=== PATIENT | female | born 1970 | race Caucasian/White ===

== ENCOUNTER 2020-01-14 23:24 | Emergency (ER) | payer BC ==
[2020-01-14 23:46] LABS: ABSOLUTE BASOPHILS # (AUTO) 0.1 10^3/uL (0.0-0.2); ABSOLUTE EOSINOPHILS # (AUTO) 0.1 10^3/uL (0.0-0.6); ABSOLUTE LYMPHOCYTES (AUTO) 0.9 10^3/uL (0.5-4.7); ABSOLUTE MONOCYTES (AUTO) 0.7 10^3/uL (0.1-1.4); ABSOLUTE NEUT (AUTO) 7.5 10^3/uL (1.7-8.2); BASOPHILS % (AUTO) 0.8 % (0-2); EOSINOPHILS % (AUTO) 1.5 % (0-6); HEMATOCRIT 31.8 % (36.0-47.0); HEMOGLOBIN 11.2 g/dL (12.0-15.5); LYMPHOCYTES % (AUTO) 9.9 % (13-45); MEAN CORPUSCULAR HEMOGLOBIN 29.1 pg (27.0-33.4); MEAN CORPUSCULAR HGB CONC 35.2 g/dL (32.0-36.0); MEAN CORPUSCULAR VOLUME 83 fl (80-97); MONOCYTES % (AUTO) 7.2 % (3-13); PLATELET COUNT 259 10^3/uL (150-450); RED BLOOD COUNT 3.84 10^6/uL (3.72-5.28); RED CELL DISTRIBUTION WIDTH 15.8 % (11.5-14.0); SEGMENTED NEUTROPHILS % (AUTO) 80.6 % (42-78); TOTAL CELLS COUNTED % (AUTO) 100 %; WHITE BLOOD COUNT 9.4 10^3/uL (4.0-10.5)
[2020-01-15 00:06] LABS: ALBUMIN 4.4 g/dL (3.5-5.0); ALKALINE PHOSPHATASE 94 U/L (38-126); ANION GAP 8 (5-19); ASPARTATE AMINO TRANSFERASE 30 U/L (14-36); BILIRUBIN,TOTAL 0.4 mg/dL (0.2-1.3); BLOOD UREA NITROGEN 11 mg/dL (7-20); CALCIUM 9.8 mg/dL (8.4-10.2); CARBON DIOXIDE 26 mmol/L (22-30); CHLORIDE 103 mmol/L (98-107); GLUCOSE 133 mg/dL (75-110); POTASSIUM 3.9 mmol/L (3.6-5.0); TOTAL PROTEIN 7.2 g/dL (6.3-8.2)
[2020-01-15] MEDS ORDERED: HYDROMORPHONE HCL INJ/PF 2 MG/ML AMPULE IV ONE (00:13)
[2020-01-15] MEDS ORDERED: ONDANSETRON HCL INJ/PF 4 MG/2 ML SDV IV ONE (00:14)
--- NOTE | 2020-01-15 00:22 | ER Document Report ---
ED General - Related Data Home Medications: Omeprazole, metoprolol <RINA URIBE - Last Filed: 01/15/20 03:40> <DALE BARCLAY IV - Last Filed: 01/15/20 04:22> - General Chief Complaint: Abdominal Pain Stated Complaint: ABDOMINAL PAIN Time Seen by Provider: 01/15/20 00:09 - HPI Notes: Patient is a 49-year-old female who presents to the emergency department for evaluation after abdominal pain. It was sudden onset this evening while she was driving, at approximately 1930. She points to her left lower quadrant, but states the pain is everywhere. It is sharp and stabbing. She is rolling around in the bed screaming, it is difficult to obtain history. She states she was eating some Serbian fries when the pain started. She states she had a normal bowel movement this morning, small bowel movement at 2130. She has had some significant nausea but no emesis. She is still urinating. She states she had pain similar in the past when she had a perforated gastric ulcer. She states now she is getting leg cramps that have started since coming back in the room. (RINA URIBE) - Related Data Allergies/Adverse Reactions: soy Allergy (Verified 01/14/20 23:45) Past Medical History - General Information source: Patient - Social History Smoking Status: Never Smoker Family History: Reviewed & Not Pertinent - Past Medical History Cardiac Medical History: Reports: Hx Hypertension GI Medical History: Reports: Hx Gastritis, Hx Gastroesophageal Reflux Disease, Hx Ulcer - Perforated, Other - Intussusception Past Surgical History: Reports: Hx Bowel Surgery, Hx Cholecystectomy, Hx Gastric Bypass Surgery, Hx Hysterectomy <RINA URIBE - Last Filed: 01/15/20 03:40> Review of Systems - Review of Systems Gastrointestinal: See HPI Musculoskeletal: See HPI -: Yes All other systems reviewed and negative <RINA URIBE - Last Filed: 01/15/20 03:40> Physical Exam <RINA URIBE - Last Filed: 01/15/20 03:40> - Vital signs Vitals: Pulse Ox 100 01/14/20 23:26 - Notes Notes: This is a 49-year-old female who appears her stated age, in a moderate amount of distress. She is screaming, rolling around on the bed, getting up off of the bed and pacing around in the room. Vital signs reviewed, please refer to chart. Head is normocephalic, atraumatic. Pupils equal round, reactive to light. Neck is supple without meningismus. Heart is regular rate and rhythm. Lungs are clear to auscultation bilaterally. Abdomen is diffusely tender with voluntary guarding throughout, normoactive bowel sounds noted. Extremities without cyanosis, clubbing. Posterior calves are nontender. Peripheral pulses are equal. Skin is warm and dry. Patient is awake, alert, neurological exam is nonfocal. (RINA URIBE) Course - Laboratory Result Diagrams: 01/14/20 23:34 01/14/20 23:34 <RINA URIBE - Last Filed: 01/15/20 03:40> - Laboratory Result Diagrams: 01/14/20 23:34 01/14/20 23:34 - Consults Dr. Ron Marcial, Bariatric surgeon, [facility] Time consulted: 03:45 - Dr. Marcial accepted pt for transfer to his facility <DALE BARCLAY IV - Last Filed: 01/15/20 04:22> - Re-evaluation Re-evalutation: 01/15/20 00:22 Patient presents to the emergency department for evaluation. She is very dramatically rolling around on the bed, screaming out in pain. It is difficult to get a good exam or obtain a good history at this time. I did order Dilaudid and Zofran. She received fentanyl, Phenergan, Benadryl in route. There is a wide differential of this patient's pain etiology at this time. I did order CT of the abdomen pelvis with IV contrast for further evaluation. We will continue to monitor. 01/15/20 02:13 Awaiting official read from radiology, but there is clearly some sort of obstruction on initial evaluation of the CT scan. Patient is feeling significantly improved after the Dilaudid and Zofran. Given her multiple abdominal surgeries, including gastric bypass, this does at a level of complication to the patient's care. She has been cared for by Katelynn Walls at [facility] in [place] in the past, would prefer care by Dr. Walls as possible. She is currently stable, awaiting radiology input. 01/15/20 03:40 I was able to contact [facility], but was waiting for some time for call back. I then spoke with [facility] in [place]. I spoke with Dr. Marcial, on-call physician for the gastric bypass team. He happily accepted the patient in transfer. I am awaiting her rapid COVID test. Patient is placed on IV fluids. PRN pain and nausea medications ordered. She is stable. We will transfer her to [place] for further care. (RINA URIBE) - Vital Signs Vital signs: Temp Pulse Resp BP Pulse Ox 98.4 F 18 144/91 H 95 01/15/20 03:05 01/14/20 23:41 01/15/20 03:01 01/15/20 03:02 - Laboratory Laboratory results interpreted by vt: 01/14/20 01/14/20 01/15/20 23:34 23:34 02:10 Hgb 11.2 L Hct 31.8 L RDW 15.8 H Lymph % (Auto) 9.9 L Seg Neutrophils % 80.6 H Glucose 133 H Lipase 367.4 H Urine Ketones 20 H - Consults Dr. Ron Marcial, Bariatric surgeon, [facility] Reason for consultation: 01/15/20 04:21 sbo, h/o gastric bypass (DALE BARCLAY IV) Discharge - Discharge Admitting Provider: Dr. Marcial <RINA URIBE - Last Filed: 01/15/20 03:40> <DALE BARCLAY IV - Last Filed: 01/15/20 04:22> - Discharge Clinical Impression: Small bowel obstruction Condition: Stable Disposition: OTHER
--- NOTE | 2020-01-15 02:08 | RADIOLOGY REPORT (SQ) ---
CLINICAL INDICATION: abdominal pain, h/o perforation. . TECHNIQUE: Noncontrast spiral axial CT imaging was obtained of the abdomen and pelvis with multiplanar reconstructions. This exam was performed according to our departmental dose-optimization program, which includes automated exposure control, adjustment of the mA and/or kV according to patient size and/or use of iterative reconstruction techniques. COMPARISON: None. CORRELATION: None. FINDINGS: Abdomen: The lung bases demonstrate dependent atelectasis.. The heart is of normal size. No evidence of pleural or pericardial fluid. The liver is of normal size contour and attenuation. The gallbladder is surgically absent. Mild prominence of the extrahepatic biliary tree likely due to postsurgical state. The pancreas is of grossly normal contour on this noncontrast examination. The spleen is unremarkable. The adrenals are unremarkable. The kidneys appear grossly normal without evidence of urolithiasis or hydronephrosis. There is no evidence of free air. No free fluid. No bulky adenopathy. Abdominal aorta is nonaneurysmal. Pelvis: The bowel demonstrates postsurgical change to the stomach and small bowel. Please correlate with history. Dilated loops of small bowel are seen proximally. Distal small bowel and colon are of normal caliber. The transition point is not clearly seen but appears to be in the middle third of the small bowel.. The bowel is unopacified with oral contrast. Pelvic contents are unremarkable. The appendix is not seen. Visualized bones demonstrate age-appropriate osteoarthritis. IMPRESSION: Findings consistent with a small bowel obstruction..
[2020-01-15 02:23] LABS: APPEARANCE,URINE CLEAR; BILIRUBIN,URINE NEGATIVE (NEGATIVE); COLOR,URINE YELLOW; GLUCOSE, URINE NEGATIVE (NEGATIVE); KETONES,URINE 20 mg/dL (NEGATIVE); LEUKOCYTE ESTERASE,URINE NEGATIVE (NEGATIVE); NITRITE,URINE NEGATIVE (NEGATIVE); PROTEIN,URINE NEGATIVE (NEGATIVE); UROBILINOGEN,URINE NEGATIVE mg/dL (<2.0)
[2020-01-15 02:24] LABS: URINE SPECIFIC GRAVITY > 1.060
[2020-01-15] MEDS ORDERED: ONDANSETRON HCL INJ/PF 4 MG/2 ML SDV IV PRN (03:38)
[2020-01-15] MEDS ORDERED: NORMAL SALINE 1000 ML 1,000 ML IV ONE (03:39)
[2020-01-15] MEDS: HYDROMORPHONE HCL INJ/PF 2 MG/ML AMPULE IV PRN ×2 (04:04→08:33)
--- NOTE | 2020-01-15 09:23 | ER Document Report ---
Doctor's Note Notes: 01/15/20 09:23 Transport is here to take the patient to [facility]. She is alert, oriented, vital signs are normal with pulse ox of 96% and a blood pressure of 122/73, and a pulse of 97. Patient is stable for transport.
[2020-01-15 09:33] VITALS: BP 122/73
== END 2020-01-15 09:31 | disposition other institution (70) ==
LOC: ER 23:24
DX: K56.609 Unspecified intestinal obstruction, unspecified as to partial versus complete obstruction (principal); R10.9 Unspecified abdominal pain; R10.32 Left lower quadrant pain; R11.0 Nausea; I10 Essential (primary) hypertension; Z20.828 Contact with and (suspected) exposure to other viral communicable diseases
CPT/HCPCS: 96376; 99285; 96361; 96374; 96375; 36415; 83690; 85025; 87635; 80053; 81001; 74177; J1170; J2405; J7030; C9803